=== PATIENT | female | born 1995 | race African-American/Black ===

== ENCOUNTER 2016-10-10 19:29 | Emergency (ER) | payer SELFPAY ==
[~2016-10-10] VITALS: Ht 167.6 cm; Wt 192.5 kg
[2016-10-10 19:30] VITALS: BP 143/81
[2016-10-10] MEDS ORDERED: SODIUM CHLORIDE 0.9% 1,000 ML IV ONE (19:36)
[2016-10-10] MEDS ORDERED: SODIUM CHLORIDE 0.9% 1,000ML IVBOLUS ONE (20:00)
[2016-10-10] MEDS ORDERED: METOCLOPRAMIDE 5 MG/ML, 2ML IVPush ONE (20:00)
[2016-10-10] MEDS ORDERED: DIPHENHYDRAMINE 50 MG/ML, 1ML IVPush ONE (20:00)
[2016-10-10 20:45] LABS: BLOOD UREA NITROGEN 12 mg/dL (7-18)
== END 2016-10-10 21:33 | disposition home or self-care (01) ==
LOC: ED 21:10
DX: R51 Headache (principal)
CPT/HCPCS: 36415; 70450; 80048; 82040; 84703; 85025